=== PATIENT | female | born 1965 | race Caucasian/White ===

== ENCOUNTER → 2016-03-31 | Outpatient (CLI) | payer BC, OTHER ==
[~2016-03-31] MED LIST: CALC500C70 PO; CHOL100010 PO; CLR10 PO; FSMD/70 PO; MULT-506 PO; SERT25TA PO; SUMA100T16 PO
--- NOTE | 2016-03-31 14:50 | DIAGNOSTIC IMAGING REPORT ---
ABDOMEN AND PELVIS CT WITH IV AND ORAL CONTRAST CT DOSE: 460.46 mGycm HISTORY: Pain R10.32 Abdominal pain, LLQ TECHNIQUE: Multiaxial CT images of the abdomen and pelvis were performed following the use of intravenous and oral contrast. COMPARISON STUDY: None. FINDINGS: Lung bases are clear. Liver spleen and pancreas are unremarkable. Gallbladder slightly distended with multiple gallstones. There is no thickening of the gallbladder wall. Pancreas is uniform throughout. Kidneys enhance uniformly. There are negative for hydronephrosis. Small bowel pattern is nonobstructive. Colon pattern is considered unremarkable. The appendix is normal. There is no evidence for abscess collection or obstruction. Bladder is midline. IMPRESSION: 1. Gallstones. 2. Otherwise negative study abdomen and pelvis Electronically signed by: Kumar Crawford M.D. 03/31/2016 2:49 PM Dictated Date/Time: 03/31/2016 2:43 PM
== END | disposition home or self-care (01) ==
LOC: C.CTS 13:14
PROVIDERS: ATTEND Internal Medicine
DX: R10.32 Left lower quadrant pain (principal); K80.20 Calculus of gallbladder without cholecystitis without obstruction

== ENCOUNTER → 2016-05-19 | Day surgery (SDC) | payer BC, OTHER ==
[2016-05-13 08:56] VITALS: Ht 158.8 cm; Wt 59.5 kg
[~2016-05-19] VITALS: Ht 158.8 cm; Wt 59.5 kg
[~2016-05-19] MED LIST changes: +FENTANYL CITRATE INJ 50 MCG/1 ML 2 ML VIAL ONE; +LIDOCAINE HCL 2% 2 ML VIAL (20MG/ML) ONE; +MIDAZOLAM HCL 1 MG/ML 2ML VIAL ONE; -MULT-506 PO; +PROPOFOL IV EMULSION 10 MG/ML 20 ML VIAL IV ONE; -SERT25TA PO; +SODIUM CHLORIDE 0.9% 500ML 500 ML IV ONE
--- NOTE | 2016-05-19 12:23 | Endo History and Physical ---
History & Physical Date of Service: May 19, 2016. Chief Complaint: LLQ abdominal pain Referring Physician: Dr.Christopher Norman History of Present Illness 51 yo CF who presents for Colonoscopy secondary to LLQ abdominal pain. Past Medical History Osteoporosis, Gastrointestinal Disorder, Other, Depression Past Surgical History Hx Cardiac Surgery: No Hx Internal Defibrillator: No Hx Pacemaker: No Hx Abdominal Surgery: No Hx of Implantable Prosthesis: No Hx Post-Op Nausea and Vomiting: No Hx Cancer Surgery: No Hx Thoracic Surgery: No Hx Orthopedic: No Hx Urinary Tract Surgery: No Family History None Social History Smoking Status: Never Smoker Hx Substance Use: No Hx Alcohol Use: Yes (OCCASIONALLY) Allergies Coded Allergies: Sulfa Drugs (Verified Allergy, Mild, DIZZY, 05/13/16) Cat Dander (Verified Allergy, Unknown, EYE SWELLING, 05/18/16) Codeine (Verified Allergy, Unknown, VOMITTING, 05/13/16) Monosodium Glutamate (Verified Allergy, Unknown, MIGRAINE, 05/18/16) Current Medications Reported Home Medications Medications Dose Route/Sig Max Daily Dose Days Date Category Vitamin D (Cholecalciferol) 1,000 Unit Tab 1 Tab PO QAM 05/13/16 Reported Os-Michael 500 Plus D (Calcium/Vitamin D) Tab 1 Tab PO QAM 05/13/16 Reported Claritin (Loratadine) 10 Mg Tab 10 Mg PO DAILY PRN 08/17/14 Reported Imitrex (Sumatriptan Succinate) 100 Mg Tab 100 Mg PO PRN 08/17/14 Reported Fosamax+D 70MG/2800 Iu (Alendronate Sodium/Vitamin D3) 70 Mg Tab 1 Tablet PO MONTHLY 08/17/14 Reported Vital Signs Weight (Kilograms): 59.55 Height (Feet): 5 Height (Inches): 2.5 Date Time Temp Pulse Resp B/P Pulse Ox O2 Delivery O2 Flow Rate FiO2 05/19/16 11:35 36.8 84 20 114/63 97 Room Air Physical Exam General Appearance: WD/WN, no apparent distress Respiratory/Chest: Auscultation: breath sounds normal Cardiovascular: Heart Auscultation: RRR Abdomen: Bowel Sounds: normal Inspection & Palpation: soft, non-distended, no tenderness, guarding & rebound Assessment and Plan Assessment: 51 yo CF who presents for Colonoscopy secondary to LLQ abdominal pain. Plan: Proceed with colonoscopy.
--- NOTE | 2016-05-19 13:01 | GI REPORT ---
Procedure Date: 05/19/2016 11:52 AM THIS REPORT HAS BEEN AMENDED Addendum Number: 1 Addendum Date: 06/13/2016 12:18:43 PM Patient has a history of colon polyps, therefore, repeat colonoscopy in 5 years. Procedure: Colonoscopy Indications: Abdominal pain in the left lower quadrant Medicines: Monitored Anesthesia Care Complications: No immediate complications. Estimated Blood Loss: Estimated blood loss: none. Procedure: Pre-Anesthesia Assessment: - Prior to the procedure, a History and Physical was performed, and patient medications and allergies were reviewed. The patient's tolerance of previous anesthesia was also reviewed. The risks and benefits of the procedure and the sedation options and risks were discussed with the patient. All questions were answered, and informed consent was obtained. Prior Anticoagulants: The patient has taken no previous anticoagulant or antiplatelet agents. ASA Grade Assessment: I - A normal, healthy patient. After reviewing the risks and benefits, the patient was deemed in satisfactory condition to undergo the procedure. After I obtained informed consent, the scope was passed under direct vision. Throughout the procedure, the patient's blood pressure, pulse, and oxygen saturations were monitored continuously. The scope was introduced through the anus and advanced to the terminal ileum. The colonoscopy was performed without difficulty. The patient tolerated the procedure well. The quality of the bowel preparation was good. The terminal ileum, ileocecal valve, appendiceal orifice, and rectum were photographed. Findings: The colon (entire examined portion) appeared normal. Impression: - The entire examined colon is normal. - No specimens collected. Recommendation: - Resume previous diet. - Continue present medications. - Repeat colonoscopy in 10 years for surveillance. - Return to primary care physician as previously scheduled. Omkar Fontana DO 05/19/2016 1:01:30 PM This report has been signed electronically. Note Initiated On: 05/19/2016 11:52 AM I attest to the content of the Intraoperative Record and orders documented therein, exceptions below Omakr Fontana DO 06/13/2016 12:19:08 PM This report has been signed electronically.
--- NOTE | 2016-05-19 13:05 | Anesthesiology Progress Note ---
Anesthesia Post Op Note Date & Time May 19, 2016 at 13:05 Vital Signs Pain Intensity: 0 Vital Signs Past 12 Hours Date Time Temp Pulse Resp B/P Pulse Ox O2 Delivery O2 Flow Rate FiO2 05/19/16 12:55 84 14 98/65 96 Room Air 05/19/16 11:35 36.8 84 20 114/63 97 Room Air Notes Mental Status: alert / awake / arousable, participated in evaluation Pt Amnestic to Procedure: Yes Nausea / Vomiting: adequately controlled Pain: adequately controlled Airway Patency, RR, SpO2: stable & adequate BP & HR: stable & adequate Hydration State: stable & adequate Anesthetic Complications: no major complications apparent Pt doing well.
[2016-05-19 13:25] VITALS: BP 98/66; PULSE 73; O2SAT 98
--- NOTE | 2016-05-19 13:38 | Discharge Instructions ---
Endoscopy Patient Instructions Date / Procedure(s) Performed May 19, 2016. Colonoscopy Allergy Information Coded Allergies: Sulfa Drugs (Verified Allergy, Mild, DIZZY, 05/13/16) Cat Dander (Verified Allergy, Unknown, EYE SWELLING, 05/18/16) Codeine (Verified Allergy, Unknown, VOMITTING, 05/13/16) Monosodium Glutamate (Verified Allergy, Unknown, MIGRAINE, 05/18/16) Discharge Date / Findings May 19, 2016. Normal colonoscopy Medication Instructions Stopped Medication(s): last dose supplements Thursday ok to resume all medications as prescribed Reported Home Medications Medications Dose Route/Sig Max Daily Dose Days Date Category Vitamin D (Cholecalciferol) 1,000 Unit Tab 1 Tab PO QAM 05/13/16 Reported Os-Michael 500 Plus D (Calcium/Vitamin D) Tab 1 Tab PO QAM 05/13/16 Reported Claritin (Loratadine) 10 Mg Tab 10 Mg PO DAILY PRN 08/17/14 Reported Imitrex (Sumatriptan Succinate) 100 Mg Tab 100 Mg PO PRN 08/17/14 Reported Fosamax+D 70MG/2800 Iu (Alendronate Sodium/Vitamin D3) 70 Mg Tab 1 Tablet PO MONTHLY 08/17/14 Reported Provider Instructions Activity Restrictions - No exercising or heavy lifting for 24 hours. - Do not drink alcohol the day of the procedure. - Do not drive a car or operate machinery until the day after the procedure. - Do not make any important decisions or sign important papers in 24 hours after the procedure. Following Day: - Return to full activity which may include returning to work/school. Diet Start your diet with liquids and light foods (jello, soup, juice, toast). Then eat your usual diet if not nauseated. Treatment For Common After Affects For mild abdominal pain, bloating, or excessive gas: - Rest - Eat lightly - Lie on right side Follow-Up Information Follow-up with Dr.Christopher Norman as scheduled Anesthesia Information What You Should Know You have had a procedure that required some medicine to reduce anxiety and discomfort. This treatment is called moderate sedation. After receiving the treatment, you may be sleepy, but you will be able to breathe on your own. The effects of the treatment may last for several hours. Follow these instructions along with Activity/Diet recommendations noted above: * Do NOT do anything where dizziness or clumsiness would be dangerous. * Rest quietly at home today, then you can be up and about tomorrow. * Have a responsible person stay with you the rest of today. * You may have had an I.V. today. If so, you may take the dressing off later today. Recommendations Call your doctor if: * Trouble breathing * Continuous vomiting for more than 24 hours * Temperature above 101 degrees * Severe abdominal pain or bloating * Pain not relieved by pain medicine ordered * There is increased drainage or redness from any incision * A large amount of rectal bleeding greater than 2-3 tablespoons. (If you had a polyp/s removed or have hemorrhoids, a small amount of blood - from the rectum is to be expected.) * You have any unanswered questions or concerns. IN THE EVENT OF A SERIOUS EMERGENCY, GO TO THE NEAREST EMERGENCY ROOM Your discharge instructions were prepared by provider Omkar Fontana. Patient Instructions Signature Page Lara Cifuentes Patient (or Guardian) Signature/Date: I have read and understand the instructions given to me by my caregivers. Caregiver/RN/Doctor Signature/Date: The above-named patient and/or guardian has received patient instructions on this date. + Original Patient Signature Page (only) stays with chart. Please make copy for patient.
== END | disposition home or self-care (01) ==
LOC: C.GI 11:19
PROVIDERS: ATTEND Internal Medicine
DX: R10.32 Left lower quadrant pain (principal); M81.0 Age-related osteoporosis without current pathological fracture

== ENCOUNTER → 2016-07-09 | Outpatient (CLI) | payer BC, OTHER ==
[~2016-07-09] MED LIST changes: -FENTANYL CITRATE INJ 50 MCG/1 ML 2 ML VIAL ONE; +GADAVIST IV PRN; -LIDOCAINE HCL 2% 2 ML VIAL (20MG/ML) ONE; -MIDAZOLAM HCL 1 MG/ML 2ML VIAL ONE; -PROPOFOL IV EMULSION 10 MG/ML 20 ML VIAL IV ONE; -SODIUM CHLORIDE 0.9% 500ML 500 ML IV ONE
--- NOTE | 2016-07-09 14:26 | DIAGNOSTIC IMAGING REPORT ---
Hemipelvis combination PELVIS COMBO CLINICAL HISTORY: R10.2 Pain, pelvic, [id number] Abdominal pain, LLQ (left lower TECHNIQUE: MRI multi axial acquisition COMPARISON STUDY: None FINDINGS: Moderate increase in fecal load within the sigmoid. Moderate rectal prolapse. Bladder is midline. There are no significant filling defects within the bladder. No evidence for abnormal mass or collection. No significant pelvic or inguinal adenopathy. Signal characteristics the osseous structures are unremarkable. Sacroiliac joints are symmetric. IMPRESSION: 1. Increased fecal load within the sigmoid consistent with a component of fecal stasis. 2. Moderate rectal prolapse. 3. Study of the pelvis is otherwise negative Electronically signed by: Kumar Crawford M.D. 07/09/2016 2:25 PM Dictated Date/Time: 07/09/2016 2:18 PM
== END | disposition home or self-care (01) ==
LOC: C.MRI 12:45
PROVIDERS: ATTEND Internal Medicine
DX: R10.32 Left lower quadrant pain (principal); K59.00 Constipation, unspecified; K62.3 Rectal prolapse

== ENCOUNTER → 2016-10-15 | Outpatient (CLI) | payer BC, OTHER ==
[~2016-10-15] MED LIST changes: -GADAVIST IV PRN
--- NOTE | 2016-10-15 16:28 | MAMMOGRAPHY REPORT ---
BILATERAL DIGITAL SCREENING MAMMOGRAM TOMOSYNTHESIS WITH CAD: 10/15/2016 CLINICAL HISTORY: Routine screening. Patient has no complaints. TECHNIQUE: Breast tomosynthesis in addition to standard 2D mammography was performed. Current study was also evaluated with a Computer Aided Detection (CAD) system. COMPARISON: Comparison is made to exams dated: 10/15/2015 mammogram, 10/02/2014 mammogram, 10/01/2012 m ammogram, 09/29/2011 mammogram, 09/02/2010 mammogram, and 08/28/2009 mammogram - [facility] enter. BREAST COMPOSITION: The tissue of both breasts is heterogeneously dense, which may obscure small mas ses. FINDINGS: No suspicious masses, calcifications, or areas of architectural distortion are noted in ei ther breast. There has been no significant interval change compared to prior exams. Scattered bilate ral benign-appearing calcifications are not significantly changed. A biopsy marker clip is again not ed in the left lateral breast. IMPRESSION: ACR BI-RADS CATEGORY 2: BENIGN There is no mammographic evidence of malignancy. A 1 year screening mammogram is recommended. The pa tient will receive written notification of the results. Approximately 10% of breast cancers are not detected with mammography. A negative mammographic report should not delay biopsy if a clinically suggestive mass is present. Stephanie Ace M.D. /:10/15/2016 16:01:53 Production Technologist: Giulia VARELA(R)(Lucinda)(BD), [facility] letter sent: Normal 1/2 BI-RADS Code: ACR BI-RADS Category 2: Benign
== END | disposition home or self-care (01) ==
LOC: C.MAMM 15:04
PROVIDERS: ATTEND Internal Medicine
DX: Z12.31 Encounter for screening mammogram for malignant neoplasm of breast (principal)

== ENCOUNTER → 2016-12-29 | Outpatient (CLI) | payer BC, OTHER | END | disposition home or self-care (01) | LOC: C.MAMM 10:56 | PROVIDERS: ATTEND Internal Medicine | DX: M81.0 Age-related osteoporosis without current pathological fracture (principal); M85.88 Other specified disorders of bone density and structure, other site; M85.852 Other specified disorders of bone density and structure, left thigh; M85.851 Other specified disorders of bone density and structure, right thigh ==